=== PATIENT | female | born 1965 | race Caucasian/White ===

== ENCOUNTER 2020-02-02 11:31 | Emergency (ER) | payer OTHER, SELFPAY ==
--- NOTE | ~2020-02-02 | XR_ITS ---
XR elbow LT min 3V 02/02/2020 12:00 INDICATION: Left elbow pain PROCEDURE: 4 views left elbow COMPARISON: No prior studies for comparison. FINDINGS: Fracture, dislocation or subluxation is not identified. No significant joint effusion. The soft tissues appear within normal limits. No foreign bodies are identified. IMPRESSION: 1: NO ACUTE BONE OR JOINT ABNORMALITY IDENTIFIED. Reviewed, dictated and finalized at location [facility]. [facility]
[2020-02-02 11:44] VITALS: BP 162/87; PULSE 76; RESP 20; TEMP 36.3; O2SAT 95
--- NOTE | 2020-02-02 11:55 | ED.GENADULT ---
HPI - General Adult General Chief complaint: Extremity Injury, Upper Stated complaint: left arm injury Time Seen by Provider: 02/02/20 11:40 Source: patient Mode of arrival: ambulatory Limitations: no limitations History of Present Illness HPI narrative: 54 y/o female. PMH includes: VANGIE, GERD, HTN, HLD. Presents to Urgent Care clinic today with acute complaints of LT elbow pain and swelling after injury 24 hours ago. Pt reports to have been lifting heavy totes at work, and a sean if wind ripped her arm backward . She reports worsening LT elbow pain since that time. No falls or additional trauma relayed. She has trialed no home remedies for pain relief per report. She is without additional acute complaints upon PE. Related Data Home Medications Medication Instructions Recorded Confirmed cyclobenzaprine 5 mg PO TID PRN 02/02/20 02/02/20 duloxetine 120 mg PO DAILY 02/02/20 02/02/20 estradiol 1 mg PO DAILY 02/02/20 02/02/20 lamotrigine 150 mg PO BID 02/02/20 02/02/20 Allergies Allergy/AdvReac Type Severity Reaction Status Date / Time levofloxacin Allergy Intermediate Rash Verified 02/02/20 11:44 Review of Systems Review of Systems: Narrative: CONSTITUTIONAL: Denies fever, chills, sweats. EYES: Denies visual changes, redness, discharge. ENT: Denies rhinorrhea, congestion, sore throat, otalgia. CARDIOVASCULAR: Denies chest pain, palpitations, edema. RESPIRATORY: Denies dyspnea, wheezing, cough GASTROINTESTINAL: Denies abdominal pain, nausea, vomiting, diarrhea. GENITOURINARY: Denies dysuria, hematuria, abnormal discharge SKIN: Denies rash or itching. MUSCULOSKELETAL: Positive LT elbow pain. Denies back pain, or myalgia. NEUROLOGIC: Denies numbness, or focal weakness. PSYCHIATRIC: Denies anxiety or depression. [facility] Family History Family History Other Family history of coronary artery disease Family history of seizure disorder Hypertension Social History Social History Smoking status: Never smoker Second hand tobacco smoke exposure: No Alcohol intake: never Exam Narrative: Exam Narrative: GENERAL: This is a well-nourished, well-developed patient, in no apparent distress. HEAD: normocephalic, atraumatic. EYES: PERRL. Sclera clear/white. Vision is grossly intact. EARS: External ears normal, auditory canals clear and without drainage, TMs normal without perforation. Hearing grossly intact. NOSE: External nose normal with no obvious nasal discharge, nares without redness, no rhinorrhea. THROAT: Mucous membranes moist, posterior pharynx clear. NECK: Neck supple, non-tender without lymphadenopathy, masses or thyromegaly. CARDIOVASCULAR: Regular rate and rhythm without murmurs, gallops, or rubs. Pulses/Radial pulse preserved LUE. RESPIRATORY: Clear to auscultation. Breath sounds equal bilaterally. No wheezes, rales, or rhonchi. GASTROINTESTINAL: Abdomen soft, non-tender, nondistended. Bowel sounds are active. No hepato-splenomegaly, or palpable masses. No guarding. SKIN: warm, intact with no suspicious lesions or rash, good texture and turgor. NEURO: awake, alert, and oriented to person, place and time. There were no obvious focal neurologic abnormalities. Steady gait EXTREMITIES: Minimal left elbow soft tissue swelling and tenderness overlying olecranon process. There are no obvious deformities. There is no gross swelling or concern for bursitis. There is no ecchymosis. There is no tenderness over the head of the radius. Supination and pronation of the forearm is not painful. ROM is preserved. Remainder of Musculoskeletal exam is negative. BACK: Nontender without deformity or crepitance. No flank tenderness. NEURO: Alert and oriented x4. Sensation is intact. Course Vital Signs Vital signs: Vital Signs Temperature 36.3 C L 02/02/20 11:44 Pulse Rate 76 02/02/20 11:44 Respiratory Rate 2
== END 2020-02-02 12:15 | disposition home or self-care (01) ==
PROVIDERS: Emergency Provider Nurse Practitioner Adult Health; PCP Internal Medicine
DX: S56.912A Strain of unspecified muscles, fascia and tendons at forearm level, left arm, initial encounter (principal); X50.0XXA Overexertion from strenuous movement or load, initial encounter; S53.402A Unspecified sprain of left elbow, initial encounter; K21.9 Gastro-esophageal reflux disease without esophagitis; I10 Essential (primary) hypertension; E78.2 Mixed hyperlipidemia
CPT/HCPCS: 73080; 99213; G0463

== ENCOUNTER 2020-10-29 04:38 | Day surgery (SDC) | payer BC, SELFPAY ==
[2020-10-22 13:48] VITALS: BMI 31.1
[2020-10-29] MEDS: LACTATED RINGERS 1,000 ML 150 ML IV CONT (07:12)
[2020-10-29 07:14] VITALS: BP 132/90; PULSE 75; RESP 20; TEMP 36.2; O2SAT 94; BMI 29.8
--- NOTE | 2020-10-29 07:24 | WPDANESEPPF ---
Anes - Initial Pre Proc Eval Procedure: Operation Date: 10/29/20 08:15 Proposed Procedures p Screening Colonoscopy - Kirill Garcia MD Date/Time: 10/29/20 07:24 Surgeon: Kirill Garcia MD Pre Op Diagnosis: hx of colon polyps, neoplasm Patient Data Age: 54 Gender: F Height: 1.73 m Weight: 89 kg Last Vital Signs Temp 36.2 C L 10/29/20 07:14 Pulse 75 10/29/20 07:14 Resp 20 10/29/20 07:14 BP 132/90 10/29/20 07:14 Pulse Ox 94 10/29/20 07:14 Allergies Allergy/AdvReac Type Severity Reaction Status Date / Time levofloxacin Allergy Unknown Itching Verified 10/29/20 07:00 Home Medications Medication Instructions Recorded Confirmed Type ergocalciferol (vitamin D2) 1,250 50,000 unit PO WEEKLY 03/14/19 10/29/20 History mcg (50,000 unit) capsule hydrochlorothiazide 12.5 mg capsule 12.5 mg PO DAILY 03/14/19 10/29/20 History pantoprazole 40 mg tablet,delayed 40 mg PO QAM 03/14/19 10/29/20 History release simvastatin 20 mg tablet See Rx Instructions .ROUTE 06/13/19 10/29/20 Rx .COMPLEX #90 tablet cyclobenzaprine 5 mg PO TID PRN 02/02/20 10/29/20 History duloxetine 120 mg PO DAILY 02/02/20 10/29/20 History ibuprofen [IBU] 800 mg PO TID PRN #30 tablet 02/02/20 10/29/20 Rx lamotrigine 150 mg PO BID 02/02/20 10/29/20 History meloxicam See Rx Instructions .ROUTE 10/22/20 10/29/20 History .COMPLEX PRN Patient hx anesthesia problems: none Family hx anesthesia problems: none PMFSH Past Medical History Medical History (Updated 02/03/20 @ 11:16 by Olegario Borges) Anxiety Fibromyalgia GERD (gastroesophageal reflux disease) HLD (hyperlipidemia) Hypertension Mood disorder Surgical History Surgical History (System 02/03/20 @ 11:16 by Olegario Borges) H/O hand surgery H/O: hysterectomy (~2014) Family History Family History (System 02/03/20 @ 11:16 by Olegario Borges) Unknown Hypertension Coronary artery disease Seizure disorder Other Family history of coronary artery disease Family history of seizure disorder Social History Social History (System 02/03/20 @ 11:16 by Olegario Borges) Smoking packs per day: 0.5 Smoking cigarettes per day: 10.0 Years smoked: 30 Smoking pack-years: 15.00 Smoking status: Current every day smoker Tobacco type: cigarettes Second hand tobacco smoke exposure: Yes Alcohol intake: never Substance use: never Substance use type: does not use Living arrangements: with family Gender identity (if verbalized by the patient): Female Spiritual care concerns: No Anes - Eval Final PreProcedure Day of Procedure 10/29/20 07:24 Patient weight: obese Heart: regular rate and rhythm Lungs: clear to auscultation and normal air movement Airway: Mallampati scale class II Neurological: alert and oriented Last oral intake: >/= 8 hours ASA classification: III Emergent: no Anesthetic plan: proceed Anesthesia type and monitoring: general GIVS Informed Consent: The patient's anesthetic plan and its attendant risks and benefits were discussed with the patient/family/POA. Questions were solicited and answers provided to the satisfaction of the patient/family/POA.
--- NOTE | 2020-10-29 08:14 | WPDGICN ---
Assessment and Plan Assessment and plan (1) Family history of colonic polyps: Code(s): Z83.71 - Family history of colonic polyps Status: Acute Assessment and Plan: Patient has family history of colon polyps. Plan is for surveillance colonoscopy at this time. Consider follow-up colonoscopy is a 5 year intervals. GI Consult Note Consult date/time: 10/29/20 08:14 HPI: Benita Gordon is a 54 year old female Presents for screening colonoscopy. Patient states that her current weight appetite bowel movements are normal. Patient denies abdominal pain. Patient has had no bleeding. Family history is significant for colon polyps in her mother. Patient states that her own weight appetite bowel movements are normal. She reports at 1 point she has had colon polyps in the past. She presents today for screening colonoscopy. Review of Systems Review of Systems: All systems reviewed & are unremarkable except as noted in HPI and below PMFSH Past Medical History Medical History (Updated 10/29/20 @ 08:16 by Kirill Garcia MD) Anxiety Fibromyalgia GERD (gastroesophageal reflux disease) HLD (hyperlipidemia) Hypertension Mood disorder Surgical History Surgical History (System 02/03/20 @ 11:16 by Olegario Borges) H/O hand surgery H/O: hysterectomy (~2014) Family History Family History (System 02/03/20 @ 11:16 by Olegario Borges) Unknown Hypertension Coronary artery disease Seizure disorder Other Family history of coronary artery disease Family history of seizure disorder Social History Social History (System 02/03/20 @ 11:16 by Olegario Borges) Smoking packs per day: 0.5 Smoking cigarettes per day: 10.0 Years smoked: 30 Smoking pack-years: 15.00 Smoking status: Current every day smoker Tobacco type: cigarettes Second hand tobacco smoke exposure: Yes Alcohol intake: never Substance use: never Substance use type: does not use Living arrangements: with family Gender identity (if verbalized by the patient): Female Spiritual care concerns: No Meds Home Medications and Allergies Home Medications Medication Instructions Recorded Confirmed Type ergocalciferol (vitamin D2) 1,250 50,000 unit PO WEEKLY 03/14/19 10/29/20 History mcg (50,000 unit) capsule hydrochlorothiazide 12.5 mg capsule 12.5 mg PO DAILY 03/14/19 10/29/20 History pantoprazole 40 mg tablet,delayed 40 mg PO QAM 03/14/19 10/29/20 History release simvastatin 20 mg tablet See Rx Instructions .ROUTE 06/13/19 10/29/20 Rx .COMPLEX #90 tablet cyclobenzaprine 5 mg PO TID PRN 02/02/20 10/29/20 History duloxetine 120 mg PO DAILY 02/02/20 10/29/20 History ibuprofen [IBU] 800 mg PO TID PRN #30 tablet 02/02/20 10/29/20 Rx lamotrigine 150 mg PO BID 02/02/20 10/29/20 History meloxicam See Rx Instructions .ROUTE 10/22/20 10/29/20 History .COMPLEX PRN Allergies Allergy/AdvReac Type Severity Reaction Status Date / Time levofloxacin Allergy Unknown Itching Verified 10/29/20 07:00 Vital Signs Vital Signs - 24 hr 10/29/20 07:14 Temperature 97.1 F L Pulse Rate 75 Respiratory Rate 20 Blood Pressure 132/90 Pulse Oximetry 94 Exam Narrative: Physical exam reveals patient be alert. Vital signs stable. HEENT exam is unremarkable. Patient is anicteric. Lungs are clear to auscultation and percussion. Heart is without murmur or extra sounds. Abdominal exam bowel sounds are present soft nontender with no organomegaly. Digital external rectal exam is normal.
[2020-10-29 08:52] VITALS: BP 99/75; PULSE 55; RESP 15; O2SAT 99
[2020-10-29 09:02] VITALS: BP 115/72; PULSE 59; RESP 18; O2SAT 100
[2020-10-29 09:12] VITALS: BP 119/76; PULSE 51; RESP 15; O2SAT 100
== END 2020-10-29 09:21 | disposition home or self-care (01) ==
PROVIDERS: PCP Internal Medicine; Visit Provider Internal Medicine Gastroenterology
PROC: 0DJD8ZZ Inspection of Lower Intestinal Tract, Via Natural or Artificial Opening Endoscopic (ICD-10-PCS; CPT 45378; principal; 2020-10-29 08:15)
DX: Z12.11 Encounter for screening for malignant neoplasm of colon (principal); D12.0 Benign neoplasm of cecum; K63.5 Polyp of colon; K62.1 Rectal polyp; K21.9 Gastro-esophageal reflux disease without esophagitis; E78.5 Hyperlipidemia, unspecified; I10 Essential (primary) hypertension; F17.210 Nicotine dependence, cigarettes, uncomplicated; M79.7 Fibromyalgia; F39 Unspecified mood [affective] disorder; F41.9 Anxiety disorder, unspecified; Z90.710 Acquired absence of both cervix and uterus; Z83.71 Family history of colonic polyps
CPT/HCPCS: 45385; 88305; J2704; J7120

== ENCOUNTER 2021-05-30 10:33 | Emergency (ER) | payer BC, SELFPAY ==
--- NOTE | ~2021-05-30 | CT_ITS ---
EXAMINATION: CT abdomen pelvis w con INDICATION: Abdominal pain TECHNIQUE: Computed tomographic images of the abdomen and pelvis were obtained after the administrati on of 100 cc of Omnipaque 350 intravenous contrast. The dose-length product (DLP) was 677.40 mGy-cm. Automated exposure control and iterative reconstruction technique were employed. COMPARISON: 06/23/2017 FINDINGS: There is consolidation in the right lower lobe. The heart size is normal. The liver, spleen , pancreas, gallbladder, and adrenal glands are normal. The left kidney is unremarkable. There is a 5 mm cyst in the upper pole of the right kidney. There is calcified atherosclerosis of the aorta and m any of the other arteries. No pathologically enlarged abdominal or pelvic lymph nodes are identified. There is no free intraperitoneal gas or evidence of bowel obstruction. There is mild lumbar spondylo sis. There is a fat-containing umbilical hernia. IMPRESSION: 1. Right lower lobe pneumonia. 2. No acute abnormality of the abdomen or pelvis. Reviewed, dictated and finalized at location B.
[2021-05-30 11:04] VITALS: BP 138/78; PULSE 88; RESP 16; TEMP 36.8; O2SAT 95
[2021-05-30 11:27] LABS: Basophils Absolute Auto 0.1 K/mm3 (0.0-0.1); Basophils Percent Auto 0.5 % (0.2-1.2); Eosinophils Absolute Auto 0.1 K/mm3 (0-0.3); Eosinophils Percent Auto 0.6 % (0-4.4); Hemoglobin 16.2 g/dL (12.0-15.0); Immature Granulocyte Absolute 0.12 K/mm3 (0.00-0.031); Immature Granulocyte Percent A 0.8 % (0-0.5); Lymphocytes Absolute Auto 2.04 K/mm3 (0.9-3.2); Lymphocytes Percent Auto 12.9 % (18.3-44.2); Mean Corpuscular HGB Conc 33.1 g/dl (32-36); Mean Corpuscular Hemoglobin 30.3 pg (26-34); Mean Corpuscular Volume 91.8 fl (80-100); Mean Platelet Volume 9.8 fl (7.4-10.4); Monocytes Absolute Auto 0.8 K/mm3 (0.1-0.6); Monocytes Percent Auto 5.2 % (2.6-8.5); Neutrophils Absolute Auto 12.6 K/mm3 (1.3-6.7); Platelet Count Result 263 k/mm3 (150-375); Red Blood Count 5.34 M/mm3 (4.2-5.4); Red Cell Distribution Width 12.1 % (11.5-14.5); White Blood Count 15.8 K/mm3 (4.5-10.0)
[2021-05-30 11:39] LABS: Alanine Aminotransferase 27 U/L (4-35); Albumin Level 4.2 g/dL (3.5-5.1); Alkaline Phosphatase 104 U/L (38-126); Anion Gap 7 mmol/L (8-16); Aspartate Amino Transferase 32 U/L (14-36); Bilirubin,Total 0.7 mg/dL (0.2-1.3); Blood Urea Nitrogen 12 mg/dL (7-17); Calcium 8.8 mg/dL (8.4-10.2); Carbon Dioxide 33 mmol/L (22-30); Chloride 95 mmol/L (98-107); Estimated CRCL calculation 105 ml/min; Estimated Glomerular Filt Rate > 60; Glucose 130 mg/dL (65-110); Lipase 48 U/L (23-300); Potassium 4.4 mmol/L (3.4-5.0); Sodium 135 mmol/L (137-145)
--- NOTE | 2021-05-30 12:47 | ED.NAVMDI ---
HPI - Nausea/Vomiting/Diarrhea General Chief complaint: Nausea/Vomiting/Diarrhea Stated complaint: nausea Time Seen by Provider: 05/30/21 11:26 Source: patient Mode of arrival: ambulatory Limitations: no limitations History of Present Illness HPI Narrative: 55-year-old female presents today with complaints of 3 days of nausea, vomiting, and diarrhea. Patient states nausea worse today. Patient with history of colitis, denies any recent sick contacts. Patient denies blood in the stool, fevers, does endorse body aches. Related Data Home Medications Medication Instructions Recorded Confirmed ergocalciferol (vitamin D2) 1,250 50,000 unit PO WEEKLY 03/14/19 10/29/20 mcg (50,000 unit) capsule hydrochlorothiazide 12.5 mg capsule 12.5 mg PO DAILY 03/14/19 10/29/20 pantoprazole 40 mg tablet,delayed 40 mg PO QAM 03/14/19 10/29/20 release cyclobenzaprine 5 mg PO TID PRN 02/02/20 10/29/20 duloxetine 120 mg PO DAILY 02/02/20 10/29/20 lamotrigine 150 mg PO BID 02/02/20 10/29/20 meloxicam See Rx Instructions .ROUTE 10/22/20 10/29/20 .COMPLEX PRN Allergies Allergy/AdvReac Type Severity Reaction Status Date / Time levofloxacin Allergy Unknown Itching Verified 05/30/21 11:35 Review of Systems Review of Systems: CONSTITUTIONAL: Denies fever, chills, or sweats. EYES: Denies visual changes, redness, or discharge. ENT: Denies rhinorrhea, congestion, sore throat, or otalgia. CARDIOVASCULAR: Denies chest pain, palpitations, or edema. RESPIRATORY: Denies cough or dyspnea. GASTROINTESTINAL: Positive for abdominal pain, nausea, vomiting, or diarrhea. GENITOURINARY: Denies dysuria or hematuria. SKIN: Denies rash or itching. MUSCULOSKELETAL: Denies back pain, joint pain, or myalgia. NEUROLOGIC: Denies headache, numbness, dizziness, or weakness. PSYCHIATRIC: Denies anxiety or depression. [facility] Past Medical History Medical History Anxiety Fibromyalgia GERD (gastroesophageal reflux disease) HLD (hyperlipidemia) Hypertension Mood disorder Surgical History Surgical History H/O hand surgery H/O: hysterectomy (~2014) Family History Family History Unknown Hypertension Coronary artery disease Seizure disorder Other Family history of coronary artery disease Family history of seizure disorder Social History Social History Smoking packs per day: 0.5 Smoking cigarettes per day: 10.0 Years smoked: 30 Smoking pack-years: 15.00 Smoking status: Current every day smoker Tobacco type: cigarettes Second hand tobacco smoke exposure: Yes Alcohol intake: never Substance use: never Substance use type: does not use Gender identity (if verbalized by the patient): Female Spiritual care concerns: No Exam Narrative: GENERAL: Well-appearing, well-nourished, and in no acute distress. HEAD: Normocephalic, atraumatic. EYES: PERRLA and EOMI. ENT: Nares clear, no rhinorrhea or epistaxis. Mucous membranes moist. Oropharynx without tonsillar hypertrophy exudate or other lesions. Bilateral TMs pearly nolasco nonbulging NECK: Supple. No adenopathy or masses. No carotid bruits or JVD CHEST: Clear to auscultation. No respiratory distress. No wheezes rales or rhonchi HEART: Regular rate and rhythm. No murmur heard. Normal peripheral pulses. ABDOMEN: Tender on palpation generalized. Soft nondistended, normal active bowel sounds. EXTREMITIES: Normal range of motion. No edema. SKIN: Warm, dry, no rash. NEURO: No focal deficits. Alert and oriented x3. PSYCH: Normal mood and affect. Course Course Emergency Course: Reviewed CT and lab results with patient. Patient aware that she has pneumonia at current time and there is no acute abnormality found in the abdomen/pelvis. Patient be discharged on p.o. antibioti
--- NOTE | 2021-05-30 12:58 | PC.NURSE ---
pt to ct
[2021-05-30] MEDS: SODIUM CHLORIDE 0.9% IV 1,000 ML 999 ML IV CONT (13:05)
[2021-05-30] MEDS: FAMOTIDINE 20 MG/2 ML VIAL IV PUSH (13:06)
[2021-05-30] MEDS: ONDANSETRON INJ 4 MG/2 ML VIAL IV PUSH (13:06)
[2021-05-30 13:10] VITALS: BP 136/71; PULSE 78; RESP 14; O2SAT 96
[2021-05-30 13:54] LABS: Influenza A QL RT-PCR Negative (Negative); Influenza B QL RT-PCR Negative (Negative); SARS-CoV-2 RNA PCR Negative
[2021-05-30 14:25] LABS: Add Urine Microscopic? YES; Appearance Urine Clear (Clear); Bilirubin Urine Negative (Negative); Blood Urine 1+ (Negative); Color Urine Yellow (Yellow); Glucose Urine UA Negative (Negative); Ketones Urine Negative (Negative); Leukocyte Esterase Ur Negative LEU/UL (Negative); Mucus Urine Few /lpf; Nitrate Urine Negative (Negative); Protein Urine Negative (Negative); Squamous Epithelial Cell Urine Moderate /hpf (Few); WBC Urine 0-3 /hpf
[2021-05-30 15:13] VITALS: PULSE 77; RESP 14; O2SAT 94
[2021-05-30 15:14] VITALS: BP 118/69
== END 2021-05-30 15:40 | disposition home or self-care (01) ==
PROVIDERS: Emergency Medicine; Emergency Provider Nurse Practitioner Family; PCP Internal Medicine
DX: J18.9 Pneumonia, unspecified organism (principal); Z20.822 Contact with and (suspected) exposure to COVID-19; E78.5 Hyperlipidemia, unspecified; I10 Essential (primary) hypertension; K21.9 Gastro-esophageal reflux disease without esophagitis; M79.7 Fibromyalgia; F17.210 Nicotine dependence, cigarettes, uncomplicated
CPT/HCPCS: 36415; 74177; 80053; 81001; 83690; 85025; 87502; 96361; 96374; 96375; 99284; C9803; J2405; J7030; Q9967; U0003; U0005

== ENCOUNTER 2022-02-12 08:18 | Emergency (ER) | payer BC, SELFPAY ==
--- NOTE | 2022-02-12 08:19 | ED.URI ---
HPI - URI/Sore Throat General Chief Complaint: Upper Respiratory Infection Stated Complaint: ear throat cough Time Seen by Provider: 02/12/22 08:19 Source: patient and RN notes reviewed History of Present Illness HPI Narrative: patient is a 56-year-old female who presents to urgent care with complaints of sore throat, ear pain and cough for 3 days. Patient has been taking Robitussin. States that she has had off and on fevers that started last night. Denies any ill exposures. No other acute complaints. No acute distress noted. Patient aware of plan of care. Some parts of this dictation were generated by voice recognition software and may contain typographical and/or grammatical inaccuracies. Related Data Home Medications Medication Instructions Recorded Confirmed ergocalciferol (vitamin D2) 1,250 50,000 unit PO WEEKLY 03/14/19 02/12/22 mcg (50,000 unit) capsule (Vitamin D2) hydrochlorothiazide 12.5 mg capsule 12.5 mg PO DAILY 03/14/19 02/12/22 pantoprazole 40 mg tablet,delayed 40 mg PO QAM 03/14/19 02/12/22 release cyclobenzaprine 5 mg tablet 5 mg PO TID PRN Muscle Spasm 02/02/20 02/12/22 duloxetine 30 mg capsule,delayed 120 mg PO DAILY 02/02/20 02/12/22 release lamotrigine 150 mg tablet 150 mg PO BID 02/02/20 02/12/22 meloxicam 15 mg tablet See Rx Instructions .Route 10/22/20 02/12/22 .COMPLEX PRN Pain Allergies Allergy/AdvReac Type Severity Reaction Status Date / Time levofloxacin Allergy Unknown Itching Verified 02/12/22 08:30 Review of Systems Review of Systems: CONSTITUTIONAL: reports of fever EYES: Denies visual changes, redness, or discharge. ENT: Reports of sore throat and bilateral ear pain CARDIOVASCULAR: Denies chest pain, palpitations, or edema. RESPIRATORY: reports of cough without dyspnea GASTROINTESTINAL: Denies abdominal pain, nausea, vomiting, or diarrhea. GENITOURINARY: Denies dysuria or hematuria. SKIN: Denies rash or itching. MUSCULOSKELETAL: Denies back pain, joint pain, or myalgia. NEUROLOGIC: Denies headache, numbness, or weakness. All other systems reviewed are negative, except as documented in HPI. [facility] Past Medical History Medical History Anxiety Fibromyalgia GERD (gastroesophageal reflux disease) HLD (hyperlipidemia) Hypertension Mood disorder Surgical History Surgical History H/O hand surgery H/O: hysterectomy (~2014) Family History Family History Unknown Hypertension Coronary artery disease Seizure disorder Other Family history of coronary artery disease Family history of seizure disorder Social History Social History Smoking packs per day: 0.5 Smoking cigarettes per day: 10.0 Years smoked: 30 Smoking pack-years: 15.00 Smoking status: Current every day smoker Tobacco type: cigarettes Second hand tobacco smoke exposure: Yes Alcohol intake: never Substance use: never Substance use type: does not use Gender identity (if verbalized by the patient): Female Spiritual care concerns: No Comments At the time of my signature, I reviewed and agree with the nursing past medical, surgical, social, and family history. There is no relevant family history pertinent to the patient complaint. Exam Narrative: GENERAL: This is a well-nourished, well-developed patient, in no apparent distress. HEAD: normocephalic, atraumatic. EYES: PERRL. Sclera clear/white. Vision is grossly intact. EARS: External ears normal, auditory canals clear and without drainage, Moderately retracted erythemic right TM with mild retraction and erythemic left TM.. Hearing grossly intact. NOSE: External nose normal with no obvious nasal discharge, nares without redness, no rhinorrhea. THROAT: Mucous membranes moist, posterior pharynx fernanda
[2022-02-12 08:24] VITALS: BP 120/61; PULSE 90; RESP 14; TEMP 37; O2SAT 96
== END 2022-02-12 08:55 | disposition home or self-care (01) ==
PROVIDERS: Emergency Provider Nurse Practitioner Family; PCP Internal Medicine
DX: J40 Bronchitis, not specified as acute or chronic (principal); H66.93 Otitis media, unspecified, bilateral; F17.210 Nicotine dependence, cigarettes, uncomplicated; M79.7 Fibromyalgia; K21.9 Gastro-esophageal reflux disease without esophagitis; E78.5 Hyperlipidemia, unspecified; I10 Essential (primary) hypertension; F39 Unspecified mood [affective] disorder
CPT/HCPCS: 99213; G0463